=== PATIENT | male | born 1990 | race Caucasian/White ===

== ENCOUNTER 2020-08-06 13:55 | Outpatient (REF) | payer MEDICARE, MEDICAID, SELFPAY | END 2020-08-06 13:56 | disposition home or self-care (01) | LOC: HO.LAB 13:55 | PROVIDERS: Visit Provider Internal Medicine | DX: Z20.828 Contact with and (suspected) exposure to other viral communicable diseases (principal) | CPT/HCPCS: 87635 ==

== ENCOUNTER → 2022-08-09 09:50 | Outpatient (BNVA) | payer MEDICARE, MEDICAID, SELFPAY | PROVIDERS: PCP Physician Assistant Medical; Visit Provider Dietitian, Registered | DX: E66.01 Morbid (severe) obesity due to excess calories (principal); G47.33 Obstructive sleep apnea (adult) (pediatric); Z68.42 Body mass index [BMI] 45.0-49.9, adult | CPT/HCPCS: 97802 ==

== ENCOUNTER → 2022-11-15 13:06 | Outpatient (BNVA) | payer MEDICARE, MEDICAID, SELFPAY | PROVIDERS: PCP Physician Assistant Medical; Visit Provider Dietitian, Registered | DX: G47.33 Obstructive sleep apnea (adult) (pediatric) (principal); E66.01 Morbid (severe) obesity due to excess calories; F50.81 Binge eating disorder; F50.89 Other specified eating disorder; Z68.42 Body mass index [BMI] 45.0-49.9, adult; Z86.39 Personal history of other endocrine, nutritional and metabolic disease | CPT/HCPCS: 97803 ==

== ENCOUNTER → 2023-02-16 10:00 | Outpatient (BNVA) | payer MEDICARE, MEDICAID, SELFPAY | PROVIDERS: PCP Physician Assistant Medical; Visit Provider Dietitian, Registered | DX: E66.9 Obesity, unspecified (principal); G47.33 Obstructive sleep apnea (adult) (pediatric); Z68.42 Body mass index [BMI] 45.0-49.9, adult; Z71.3 Dietary counseling and surveillance | CPT/HCPCS: 97803 ==

== ENCOUNTER 2023-07-18 09:45 | Outpatient (AMB) | payer MEDICARE, MEDICAID, SELFPAY ==
[2023-07-18 10:13] VITALS: BMI 47.0
--- NOTE | 2023-07-18 10:13 | A.OFFVIS_ITS ---
Intake VS Expanded 07/18/23 10:13 Height 5 ft 7 in Weight 299 lb 13.259 oz BMI 47.0 Intake Visit Reasons: Obesity/LVM Allergies shellfish derived Allergy (Mild, Unverified 07/09/20 17:25) HIVES HPI Nutrition Presentation Details PT presents for MNT 6 months for obesity Pt reports has difficulties sleeping due to PTSD and increases of food intake. Pt admits to not reducing portions or reading food labels. Admits to not making consistent diet modifications. Most Recent Diabetes Results: No Data to Display Assessment & Plan Assessment & Plan (1) GISELE (obstructive sleep apnea): Code(s): G47.33 - Obstructive sleep apnea (adult) (pediatric) (2) Morbid obesity with BMI of 45.0-49.9, adult: Code(s): E66.01 - Morbid (severe) obesity due to excess calories; Z68.42 - Body mass index [BMI] 45.0-49.9, adult Plan: Educate Pt on 1999- 2099 jose meal plan ? Pt's set goal (Date: 08/09/22 ): drink water with meals instead of juice drinks/sodas at follow up (Date: 11/15/22 ): Not met, goal modified to dilute juices with water working on reducing sugar intake at f/u (02/16/23) not met, 06/2023 NOT MET. Had long discussion regarding interest in diet modification and continue nutrition follow up. Pt was advised to stop nutrition visits until he is ready to work on diet modifications. Pt agreed to work on diet modifications. Used wt : 134 kg Est kcal as per MSJ: 2685-500 = 2185 (40% carb, 30% fat/prot) Est fluid needs: 3352 ml/d (25 ml/kg bw) Rec fiber: increase to 8-10 g per day and gradually increase to 35 g as tolerated Rec Na: < 2000 mg /d Educate patient on: (R= Reviewed, V = verbalizes understanding N/R= Needs review N/A= not applicable) * Food sources of carbohydrates and serving adequate serving sizes : R * Difference between complex carbohydrates and simple carbohydrates, role of fiber: R * Differences between fats (MUFA/PUFA/saturated fats, trans fats) and food sources of various fats: R * Food sources of sodium and salt and healthy modifications for heart health and kidney health: N/R * Vitamins and minerals: N/R * How to interpret food labels: N/R * Healthy Plate method concept: R * Physical activity: benefits and precaution: R V Patient Instructions: Pt agreed to switch to smaller plates and cups to reduce on portion sizes Have a fruit in place of pastries, choose lower calorie foods, opt for diet beverages, low sugar cereals, jello and the like. See list of options provided (contemplating physical activity) Goal weight loss 6 lbs less by next follow up in 3 months Coding Level of Care Code Nutr Indiv Subseq (85896) Diagnoses GISELE (obstructive sleep apnea) G47.33 Morbid obesity with BMI of 45.0-49.9, adult E66.01; Z68.42 Time Spent (min) 30
== END 2023-07-18 11:11 | disposition home or self-care (01) ==
PROVIDERS: PCP Physician Assistant Medical; Visit Provider Dietitian, Registered
DX: G47.33 Obstructive sleep apnea (adult) (pediatric) (principal); E66.01 Morbid (severe) obesity due to excess calories; Z68.42 Body mass index [BMI] 45.0-49.9, adult

== ENCOUNTER → 2023-07-18 09:45 | Outpatient (BNVA) | payer MEDICARE, MEDICAID, SELFPAY | PROVIDERS: Visit Provider Dietitian, Registered | DX: E66.9 Obesity, unspecified (principal); F43.10 Post-traumatic stress disorder, unspecified; G47.33 Obstructive sleep apnea (adult) (pediatric); Z68.42 Body mass index [BMI] 45.0-49.9, adult; Z71.3 Dietary counseling and surveillance | CPT/HCPCS: 97803 ==

== ENCOUNTER 2023-10-18 10:35 | Outpatient (AMB) | payer MEDICARE, MEDICAID, SELFPAY ==
[2023-10-18 11:21] VITALS: BMI 46.0
--- NOTE | 2023-10-18 11:21 | A.OFFVIS_ITS ---
Intake VS Expanded 10/18/23 11:21 Height 5 ft 7 in Weight 293 lb 14.019 oz BMI 46.0 Intake Visit Reasons: Obesity/LVM Allergies shellfish derived Allergy (Mild, Unverified 07/09/20 17:25) HIVES HPI Nutrition Presentation Details Pt presents for MNT for obesity Pt;s wt goal: 260 lbs Pt reports working on reducing on sugars from beverages and having salads with protein foods for lunch 5 days a week Challenges: eating late at night while playing /watching TV Tends to eat fast/overeats and vomits after meals - happens once daily Physical activity: sedentary - has gym membership Most Recent Diabetes Results: No Data to Display Assessment & Plan Assessment & Plan (1) GISELE (obstructive sleep apnea): Code(s): G47.33 - Obstructive sleep apnea (adult) (pediatric) Plan: Follow heathy plate method at dinner 5 times/wk (2) Morbid obesity with BMI of 45.0-49.9, adult: Comment: BMI 46 on 09/2023 Code(s): E66.01 - Morbid (severe) obesity due to excess calories; Z68.42 - Body mass index [BMI] 45.0-49.9, adult Plan: Pt's set goal (Date: 08/09/22 ): drink water with meals instead of juice drinks/sodas at follow up (Date: 11/15/22 ): Not met, goal modified to dilute juices with water working on reducing sugar intake at f/u (02/16/23) not met, 06/2023 NOT MET. Had long discussion regarding interest in diet modification and continue nutrition follow up. Pt was advised to stop nutrition visits until he is ready to work on diet modifications. Pt agreed to work on diet modifications. 09/2023: making diet modifications related to reducing on starches and having salad with protein in one meal in the day Used wt : 134 kg (10/18/23) Est kcal as per MSJ: 2685-500 = 2185 (40% carb, 30% fat/prot) Est fluid needs: 3352 ml/d (25 ml/kg bw) Rec fiber: increase to 8-10 g per day and gradually increase to 35 g as tolerated Rec Na: < 2000 mg /d Educate patient on: (R= Reviewed, V = verbalizes understanding N/R= Needs review N/A= not applicable) * Food sources of carbohydrates and serving adequate serving sizes : R * Difference between complex carbohydrates and simple carbohydrates, role of fiber: R * Differences between fats (MUFA/PUFA/saturated fats, trans fats) and food sources of various fats: R * Food sources of sodium and salt and healthy modifications for heart health and kidney health: N/R * Vitamins and minerals: N/R * How to interpret food labels: N/R * Healthy Plate method concept: R * Physical activity: benefits and precaution: R V Patient Instructions: -Reduce on sugars (from beverages, sugar added to coffee) -Eat slowly , chew foods well prior to swallowing to prevent vomiting after meals - Follow healthy plate method at dinner 5 times/wk weight loss goal by next follow up 5 lbs less Coding Level of Care Code Nutr Indiv Subseq (72371) Diagnoses GISELE (obstructive sleep apnea) G47.33 Morbid obesity with BMI of 45.0-49.9, adult E66.01; Z68.42 Time Spent (min) 30
== END 2023-10-18 12:02 | disposition home or self-care (01) ==
PROVIDERS: PCP Physician Assistant Medical; Visit Provider Dietitian, Registered
DX: G47.33 Obstructive sleep apnea (adult) (pediatric) (principal); E66.01 Morbid (severe) obesity due to excess calories; Z68.42 Body mass index [BMI] 45.0-49.9, adult

== ENCOUNTER → 2023-10-18 10:35 | Outpatient (BNVA) | payer MEDICARE, MEDICAID, SELFPAY | PROVIDERS: PCP Physician Assistant Medical; Visit Provider Dietitian, Registered | DX: G47.33 Obstructive sleep apnea (adult) (pediatric) (principal); E66.01 Morbid (severe) obesity due to excess calories; Z68.42 Body mass index [BMI] 45.0-49.9, adult | CPT/HCPCS: 97803 ==

== ENCOUNTER 2024-01-31 10:07 | Outpatient (AMB) | payer MEDICARE, MEDICAID, SELFPAY ==
[2024-01-31 10:13] VITALS: BMI 46.4
--- NOTE | 2024-01-31 10:13 | A.OFFVIS_ITS ---
Intake VS Expanded 01/31/24 10:13 Height 5 ft 7 in Weight 296 lb 8.348 oz BMI 46.4 Intake Visit Reasons: obesity/UNABLE TO REACH Allergies shellfish derived Allergy (Mild, Unverified 07/09/20 17:25) HIVES HPI Nutrition Presentation Details Pt presents for MNT f/u for obesity Pt reports choosing fruits, and drinking more water Trying healthier food options however not reducing on portions or fat intake. Eats fast, not savoring food Most Recent Diabetes Results: No Data to Display Assessment & Plan Assessment & Plan (1) GISELE (obstructive sleep apnea): Code(s): G47.33 - Obstructive sleep apnea (adult) (pediatric) Plan: Follow heathy plate method at dinner 5 times/wk (2) Morbid obesity with BMI of 45.0-49.9, adult: Comment: BMI 46 on 09/2023- Code(s): E66.01 - Morbid (severe) obesity due to excess calories; Z68.42 - Body mass index [BMI] 45.0-49.9, adult Plan: Pt's set goal (Date: 08/09/22 ): drink water with meals instead of juice drinks/sodas at follow up (Date: 11/15/22 ): Not met, goal modified to dilute juices with water working on reducing sugar intake at f/u (02/16/23) not met, 06/2023 NOT MET. Had long discussion regarding interest in diet modification and continue nutrition follow up. Pt was advised to stop nutrition visits until he is ready to work on diet modifications. Pt agreed to work on diet modifications. 09/2023: making diet modifications related to reducing on starches and having salad with protein in one meal in the day Used wt : 134 kg (10/18/23), 134 kg (01/2024) Est kcal as per MSJ: 5865-500 = 2185 (40% carb, 30% fat/prot) Est fluid needs: 3352 ml/d (25 ml/kg bw) Rec fiber: increase to 8-10 g per day and gradually increase to 35 g as tolerated Rec Na: < 2000 mg /d Educate patient on: (R= Reviewed, V = verbalizes understanding N/R= Needs review N/A= not applicable) * Food sources of carbohydrates and serving adequate serving sizes : R * Difference between complex carbohydrates and simple carbohydrates, role of fiber: R * Differences between fats (MUFA/PUFA/saturated fats, trans fats) and food sources of various fats: R * Food sources of sodium and salt and healthy modifications for heart health and kidney health: R * Vitamins and minerals: N/R * How to interpret food labels: R * Healthy Plate method concept: R * Physical activity: benefits and precaution: R V Patient Instructions: Choose low fat options at fast food rest : turkey sand with veggies at [employer] vs fried foods meals - see list of lower fat options - Coding Level of Care Code Nutr Indiv Subseq (61521) Diagnoses GISELE (obstructive sleep apnea) G47.33 Morbid obesity with BMI of 45.0-49.9, adult E66.01; Z68.42 Time Spent (min) 15
== END 2024-01-31 11:02 | disposition home or self-care (01) ==
PROVIDERS: PCP Physician Assistant Medical; Visit Provider Dietitian, Registered
DX: G47.33 Obstructive sleep apnea (adult) (pediatric) (principal); E66.01 Morbid (severe) obesity due to excess calories; Z68.42 Body mass index [BMI] 45.0-49.9, adult

== ENCOUNTER → 2024-01-31 10:07 | Outpatient (BNVA) | payer MEDICARE, MEDICAID, SELFPAY | PROVIDERS: PCP Physician Assistant Medical; Visit Provider Dietitian, Registered | DX: G47.33 Obstructive sleep apnea (adult) (pediatric) (principal); E66.01 Morbid (severe) obesity due to excess calories; Z68.42 Body mass index [BMI] 45.0-49.9, adult | CPT/HCPCS: 97803 ==

== ENCOUNTER 2024-05-01 10:24 | Outpatient (AMB) | payer MEDICARE, MEDICAID, SELFPAY ==
[2024-05-01 10:34] VITALS: BMI 46.6
--- NOTE | 2024-05-01 10:34 | A.OFFVIS_ITS ---
VS Expanded 05/01/24 10:34 05/01/24 10:44 Height 5 ft 7 in 5 ft 7 in Weight 297 lb 13.512 oz 298 lb BMI 46.6 46.7 Intake Visit Reasons: OBESITY/CONFIRMED Allergies shellfish derived Allergy (Mild, Unverified 07/09/20 17:25) HIVES Nutrition Presentation Details: Pt presents for MNT f/u for obesity Pt reports no consistent diet or exercise modification. Pt verbalizes low calorie food options BS Monitoring Most Recent Diabetes Results: No Data to Display NJV-Iqmcpl[facility]-Mn.Jeor Equation Height: 5 ft 7 in Weight: 298 lb Resting Metabolic Rate: 2241.86 Calculated Activity Level: Sedentary Calories Needed to Maintain Weight: 2690.23 Assessment & Plan Assessment & Plan (1) GISELE (obstructive sleep apnea): Code(s): G47.33 - Obstructive sleep apnea (adult) (pediatric) Category: Medical Plan: Reduce on fats in diet (reducing amount of sour cream, cheese and choose baked foods instead of fried foods) (2) Morbid obesity with BMI of 45.0-49.9, adult: Comment: BMI 46 on 09/2023- , 46.7(05/15) Code(s): E66.01 - Morbid (severe) obesity due to excess calories; Z68.42 - Body mass index [BMI] 45.0-49.9, adult Category: Medical Plan: Used wt : 134 kg (10/18/23), 134 kg (01/2024), 135 kg (04/2024) Est kcal as per MSJ: 2685-500 = 2185 (40% carb, 30% fat/prot) Est fluid needs: 3352 ml/d (25 ml/kg bw) Rec fiber: increase to 8-10 g per day and gradually increase to 35 g as tolerated Rec Na: < 2000 mg /d Educate patient on: (R= Reviewed, V = verbalizes understanding N/R= Needs review N/A= not applicable) * Food sources of carbohydrates and serving adequate serving sizes : R * Difference between complex carbohydrates and simple carbohydrates, role of fi harley: R * Differences between fats (MUFA/PUFA/saturated fats, trans fats) and food sources of various fats: R * Food sources of sodium and salt and healthy modifications for heart health and kidney health: R * Vitamins and minerals: N/R * How to interpret food labels: R * Healthy Plate method concept: R * Physical activity: benefits and precaution: R V Patient Instructions: keep track of your total calories utilizing phone ammon, Reduce your calories to 3000 a day Coding Level of Care Code Nutr Indiv Subseq (47039) Diagnoses GISELE (obstructive sleep apnea) G47.33 Morbid obesity with BMI of 45.0-49.9, adult E66.01; Z68.42 Time Spent (min) 20
[2024-05-08 14:49] VITALS: BMI 46.7
== END 2024-05-01 11:07 | disposition home or self-care (01) ==
PROVIDERS: PCP Physician Assistant Medical; Visit Provider Dietitian, Registered
DX: G47.33 Obstructive sleep apnea (adult) (pediatric) (principal); E66.01 Morbid (severe) obesity due to excess calories; Z68.42 Body mass index [BMI] 45.0-49.9, adult

== ENCOUNTER → 2024-05-01 10:24 | Outpatient (BNVA) | payer MEDICARE, MEDICAID, SELFPAY | PROVIDERS: PCP Physician Assistant Medical; Visit Provider Dietitian, Registered | DX: E66.01 Morbid (severe) obesity due to excess calories (principal); Z68.42 Body mass index [BMI] 45.0-49.9, adult; G47.33 Obstructive sleep apnea (adult) (pediatric); Z71.3 Dietary counseling and surveillance | CPT/HCPCS: 97803 ==

== ENCOUNTER 2024-10-31 10:10 | Outpatient (AMB) | payer MEDICARE, MEDICAID, SELFPAY ==
[2024-10-31 10:14] VITALS: BMI 47.1
--- NOTE | 2024-10-31 10:14 | A.OFFVIS_ITS ---
VS Expanded 10/31/24 10:14 Height 5 ft 7 in Weight 300 lb 14.896 oz BMI 47.1 Intake Visit Reasons: morbid obesity/Confirmed Allergies shellfish derived Allergy (Mild, Unverified 07/09/20 17:25) CLEMENTE Nutrition Presentation Details: Pt presents for MNT f/u for obesity Pt reports having sodas/juices/ high sugar beverages reports having larger meals in the evening : 2 boxes of pasta (mac and cheese) no vegetables BS Monitoring Most Recent Diabetes Results: No Data to Display Assessment & Plan Assessment & Plan (1) Morbid obesity with BMI of 45.0-49.9, adult: Comment: BMI 46 on 09/2023- , 46.7(05/15) Code(s): E66.01 - Morbid (severe) obesity due to excess calories; Z68.42 - Body mass index [BMI] 45.0-49.9, adult Category: Medical Plan: Used wt : 134 kg (10/18/23), 134 kg (01/2024), 135 kg (04/2024), 135 kg (11/16) Est kcal as per MSJ: 2685-500 = 2185 (40% carb, 30% fat/prot) Est fluid needs: 3352 ml/d (25 ml/kg bw) Rec fiber: increase to 8-10 g per day and gradually increase to 35 g as tolerated Rec Na: < 2000 mg /d Educate patient on: (R= Reviewed, V = verbalizes understanding N/R= Needs review N/A= not applicable) * Food sources of carbohydrates and serving adequate serving sizes : R * Difference between complex carbohydrates and simple carbohydrates, role of fiber: R * Differences between fats (MUFA/PUFA/saturated fats, trans fats) and food sources of various fats: R * Food sources of sodium and salt and healthy modifications for heart health and kidney health: R * Vitamins and minerals: r- pt on iron supplements 45 mg/d (iron sulfate/slow Fe) * How to interpret food labels: R * Healthy Plate method concept: R * Physical activity: benefits and precaution: R V Patient Instructions: Switch to low sugar beverages, crystal light Have 1 box of mc and cheese in place of 2 , add 4 oz of chicken grilled or tuna and lots of vegetables like broccoli, carrots, onions, mixed vegetables see meal ideas as reference Coding Level of Care Code Nutr Indiv Subseq (51404) Diagnoses Morbid obesity with BMI of 45.0-49.9, adult E66.01; Z68.42 Time Spent (min) 30
== END 2024-10-31 10:49 | disposition home or self-care (01) ==
PROVIDERS: PCP Physician Assistant Medical; Visit Provider Dietitian, Registered
DX: E66.01 Morbid (severe) obesity due to excess calories (principal); Z68.42 Body mass index [BMI] 45.0-49.9, adult

== ENCOUNTER → 2024-10-31 10:10 | Outpatient (BNVA) | payer MEDICARE, MEDICAID, SELFPAY | PROVIDERS: PCP Physician Assistant Medical; Visit Provider Dietitian, Registered | DX: E66.01 Morbid (severe) obesity due to excess calories (principal); Z68.42 Body mass index [BMI] 45.0-49.9, adult | CPT/HCPCS: 97803 ==

== ENCOUNTER 2025-01-09 11:46 | Outpatient (AMB) | payer MEDICARE, MEDICAID, SELFPAY ==
--- NOTE | 2025-01-09 11:26 | A.OFFVIS_ITS ---
VS Expanded 01/09/25 11:34 Height 5 ft 7 in Weight 307 lb 1.663 oz BMI 48.1 Intake Visit Reasons: Obesity Allergies shellfish derived Allergy (Mild, Unverified 07/09/20 17:25) HIVES Nutrition Presentation Details: Pt presents for MNT f/u for obesity Pt reports working on choosing healthier foods options Reports he is working and keeping physically active Food frequency fruits: 0-3/d vegetables: 4/day starches >30 /d cheese > 5 serving/d night eating (fast food meals) water: 24 oz/d Pt declines future nutrition visits BS Monitoring Most Recent Diabetes Results: No Data to Display Assessment & Plan Assessment & Plan (1) Morbid obesity with BMI of 45.0-49.9, adult: Comment: BMI 46 on 09/2023- , 46.7(05/15), 48.1 (01/14) Code(s): E66.01 - Morbid (severe) obesity due to excess calories; Z68.42 - Body mass index [BMI] 45.0-49.9, adult Category: Medical Plan: Review eating slowly, choosing fiber rich foods Used wt : 134 kg (10/18/23), 134 kg (01/2024), 135 kg (04/2024), 135 kg (11/16), 139 kg (01/14) Est kcal as per MSJ: 2685-500 = 2185 (40% carb, 30% fat/prot) Est fluid needs: 3352 ml/d (25 ml/kg bw) Rec fiber: increase to 8-10 g per day and gradually increase to 35 g as tolerated Rec Na: < 2000 mg /d Educate patient on: (R= Reviewed, V = verbalizes understanding N/R= Needs review N/A= not applicable) * Food sources of carbohydrates and serving adequate serving sizes : R * Difference between complex carbohydrates and simple carbohydrates, role of fiber: R * Differences between fats (MUFA/PUFA/saturated fats, trans fats) and food sources of various fats: R * Food sources of sodium and salt and healthy modifications for heart health and kidney health: R * Vitamins and minerals: r- pt on iron supplements 45 mg/d (iron sulfate/slow Fe) * How to interpret food labels: R * Healthy Plate method concept: R * Physical activity: benefits and precaution: R V Patient Instructions: Include 1-2 fruits daily , reducing on pastries Choose Baked food items in place of fried foods Work on chewing your food , eating slow Coding Level of Care Code Nutr Indiv Subseq (40725) Diagnoses Morbid obesity with BMI of 45.0-49.9, adult E66.01; Z68.42 Time Spent (min) 30
[2025-01-09 11:34] VITALS: BMI 48.1
--- OUTSIDE RECORDS SUMMARY | 2025-01-09 14:10 | XMS_ITS | Encounter Summary ---
Author Organization [facility] Address [address] [place] [address] Care Team Providers Care Hand Launderer Name Role Phone Osmani Lake Primary Care Provider [phone] Reason for Visit * Reason Comments Medication Review Encounter Details Date Type Department Care Team (Late st Contact Info) Description 01/08/2025 10:45 AM EDT Office Visit Adult Medicine [facility] [address], [place] [phone] Osmani Lake PA [address] [place] [address] Primary hypertension (Primary Dx); Mixed hyperlipidemia; Fatty liver; Iron deficiency anemia, unspecified iron deficiency anemia type; Gastroesophageal reflux disease without esophagitis; Bipolar 2 disorder ([facility]/HCC); Obstructive sleep apnea; Morbid obesity with BMI of 45.0-49.9, adult ([facility]) Social History Tobacco Use Types Packs/Day Years Used Date Smoking Tobacco: Never Smokeless Tobacco: Never Alcohol Use Standard Drinks/Week Comments Not Currently 0 (1 standard drink = 0.6 oz pur e alcohol) Sex and Gender Information Value Date Recorded Sex Assigned at Not on file Legal Sex Male 10:10 PM EST Gender Identity Not on file Sexual Orientation Not on file documented as of this encounter Last Filed Vital Signs Vital Sign Reading Time Taken Comments Blood Pressure 120/81 01/08/2025 11:31 AM EDT Pulse 79 01/08/2025 11:31 AM EDT Temperature 36.4 ??C (97.5 ??F) 01/08/2025 11:31 AM E DT Respiratory Rate 14 01/08/2025 11:31 AM EDT Oxygen Saturation - - Inhaled Oxygen Concentration - - Weight 138 kg (304 lb 6.4 oz) 01/08/2025 11:31 A M EDT Height 175.3 cm (5' 9 ) 01/08/2025 11:31 AM EDT Body Mass Index 44.95 01/08/2025 11:31 AM EDT documented in this encounter Ordered Prescriptions Prescription Sig Dispense Quantity Refills Last Filled Start Date End Date hydrocortisone (ANUSOL-HC) 2.5 % rectal cream Insert into the rectum 4 (four) times a day if needed for hemorrhoids. Apply to affected areas 30 g 11 01/08/2025 traZODone (DESYREL) 50 mg tablet Take 1 tablet (50 mg total) by mouth at bedtime. 90 tablet 01/08/2025 paliperidone (INVEGA) 9 mg 24 hr tablet Take 1 tablet (9 mg total) by mouth 1 (one) time each day in the morning. 90 tablet 01/08/2025 loratadine (CLARITIN) 10 mg tablet Take 1 tablet (10 mg total) by mouth 1 (one) time each day in the morning. 90 tablet 01/08/2025 hydrOXYzine pamoate (VISTARIL) 50 mg capsule Take 1 capsule (50 mg total) by mouth 3 (three) times a day if needed for itching. 90 capsule 01/08/2025 ferrous sulfate 142 mg ER tablet Take 1 tablet by mouth 1 (one) time each day. 90 tablet 01/08/2025 famotidine (PEPCID) 20 mg tablet Take 1 tablet (20 mg total) by mouth 2 (two) times a day. 90 tablet 01/08/2025 citalopram (CeleXA) 20 mg tablet Take 1 tablet (20 mg total) by mouth 1 (one) time each day. 90 tablet 01/08/2025 benztropine (COGENTIN) 0.5 mg tablet Take 1 tablet (0.5 mg total) by mouth 1 (one) time each day. 90 tablet 01/08/2025 busPIRone (BUSPAR) 10 mg tablet Take 1.5 tablets (15 mg total) by mouth 2 (two) times a day. 90 tablet 01/08/2025 atorvastatin (LIPITOR) 40 mg tablet Take 1 tablet (40 mg total) by mouth 1 (one) time each day. 90 tablet 3 01/08/2025 documented in this encounter Progress Notes * Carolee Neri MA - 01/08/2025 10:45 AM EDT Depression Screening Will the patient answer the depression risk questions?: Yes Over the last 2 weeks, how often have you been bothered by little interest or pleasure in doing things?: Not at all Over the last 2 weeks, how often have you been bothered by feeling down, depressed, or hopeless?: Not at all Depression Risk: 0 * LIBERTY Valente - 01/08/2025 10:45 AM EDT CHIEF COMPLAINT: Medication Review IDENTIFIER: Zaheer Vega is a 34 y.o. old male. HPI: This pleasant patient presents today for follow-up. He does report some bumps around the rectal area that he noticed. They are not terribly painful and he denies any bleeding. He is due for some routine blood work health maintenance seems to be up-to-date otherwise ROS: GENERAL: Negative for malaise, significant weight loss and fever RESPIRATORY: No cough, wheezing or shortness of breath CARDIOVASCULAR: Negative for chest pain, leg swelling and palpitations ENDOCRINE: Negative for cold or heat intolerance, polyuria, polydipsia and goiter NEURO: No persistent headache, fainting, seizures, strokes, TIAs, weakness, numbness or tingling PAST MEDICAL HISTORY: Patient Active Problem List Diagnosis Date Noted Morbid obesity with BMI of 45.0-49.9, adult ([facility]) 08/08/2024 Iron deficiency anemia 01/01/2024 Obstructive sleep apnea 09/21/2021 Arachnoid cyst 08/03/2021 Low testosterone in male 07/26/2021 COVID-19 08/17/2020 Hypertension 01/03/2020 GERD (gastroesophageal reflux disease) 01/31/2018 Seasonal allergies 01/31/2018 Central sleep apnea 02/13/2017 Hyperlipidemia 11/12/2015 Fatty liver 12/23/2013 Bipolar 2 disorder ([facility]/HCC) 04/27/2011 ADD (attention deficit disorder) 04/27/2011 Past Surgical History: Procedure Laterality Date OTHER SURGICAL HISTORY PROCEDURE: DENIES PREVIOUS SURGERY SOCIAL HISTORY: Social History Tobacco Use Smoking status: Never Smokeless tobacco: Never Substance Use Topics Alcohol use: Not Currently FAMILY HISTORY: Family History Problem Relation Name Age of Onset Hypertension Mother breast cancer, bone cancer, lung cancer (smoker) hyperlipidemia, doesn't talk to mom No Known Problems Father No Known Problems Sister x 3 healthy sisters No Known Problems Brother x 6 healthy brothers Emphysema Maternal Grandmother copd Heart attack Maternal Grandfather No Known Problems Paternal Grandmother No Known Problems Paternal Grandfather Brain cancer Uncle maternal side Family Status Relation Name Status Mother Alive Father Alive Sister Alive Brother Alive MGM MGF PGM Alive PGF Uncle No partnership data on file MEDICATIONS DISCONTINUED/REORDERED: Medications Discontinued During This Encounter Medication Reason atorvastatin (LIPITOR) 40 mg tablet Reorder benztropine (COGENTIN) 0.5 mg tablet Reorder busPIRone (BUSPAR) 10 mg tablet Reorder citalopram (CeleXA) 20 mg tablet Reorder famotidine (PEPCID) 20 mg tablet Reorder hydrOXYzine pamoate (VISTARIL) 50 mg capsule Reorder loratadine (CLARITIN) 10 mg tablet Reorder paliperidone (INVEGA) 9 mg 24 hr tablet Reorder traZODone (DESYREL) 50 mg tablet Reorder ferrous sulfate 142 mg ER tablet Reorder ACTIVE MEDICATIONS: Outpatient Medications Marked as Taking for the 01/08/25 encounter (Office Visit) with LIBERTY Valente Medication Sig Dispense Refill acetaminophen (TYLENOL) 500 mg tablet Take 2 tablets (1,000 mg total) by mouth every 8 (eight) hours if needed. atorvastatin (LIPITOR) 40 mg tablet Take 1 tablet (40 mg total) by mouth 1 (one) time each day. 90 tablet 3 benztropine (COGENTIN) 0.5 mg tablet Take 1 tablet (0.5 mg total) by mouth 1 (one) time each day. 90 tablet 3 busPIRone (BUSPAR) 10 mg tablet Take 1.5 tablets (15 mg total) by mouth 2 (two) times a day. 90 tablet 3 citalopram (CeleXA) 20 mg tablet Take 1 tablet (20 mg total) by mouth 1 (one) time each day. 90 tablet 3 divalproex (DEPAKOTE) [address] tablet Take 1 tablet (500 mg total) by mouth. famotidine (PEPCID) 20 mg tablet Take 1 tablet (20 mg total) by mouth 2 (two) times a day. 90 tablet 3 ferrous sulfate 142 mg ER tablet Take 1 tablet by mouth 1 (one) time each day. 90 tablet 3 hydrOXYzine pamoate (VISTARIL) 50 mg capsule Take 1 capsule (50 mg total) by mouth 3 (three) times a day if needed for itching. 90 capsule 11 loratadine (CLARITIN) 10 mg tablet Take 1 tablet (10 mg total) by mouth 1 (one) time each day in the morning. 90 tablet 3 paliperidone (INVEGA) 9 mg 24 hr tablet Take 1 tablet (9 mg total) by mouth 1 (one) time each day in the morning. 90 tablet 3 traZODone (DESYREL) 50 mg tablet Take 1 tablet (50 mg total) by mouth at bedtime. 90 tablet 3 [DISCONTINUED] atorvastatin (LIPITOR) 40 mg tablet Take 1 tablet (40 mg total) by mouth 1 (one) time each day. [DISCONTINUED] benztropine (COGENTIN) 0.5 mg tablet Take 1 tablet (0.5 mg total) by mouth. [DISCONTINUED] busPIRone (BUSPAR) 10 mg tablet Take 1.5 tablets (15 mg total) by mouth 2 (two) times a day. [DISCONTINUED] citalopram (CeleXA) 20 mg tablet Take 1 tablet (20 mg total) by mouth. [DISCONTINUED] famotidine (PEPCID) 20 mg tablet Take 1 tablet (20 mg total) by mouth 2 (two) times a day. [DISCONTINUED] ferrous sulfate 142 mg ER tablet Take 1 tablet by mouth 1 (one) time each day. 90 tablet 0 [DISCONTINUED] hydrOXYzine pamoate (VISTARIL) 50 mg capsule [DISCONTINUED] loratadine (CLARITIN) 10 mg tablet Take 1 tablet (10 mg total) by mouth 1 (one) timeeach day in the morning. [DISCONTINUED] paliperidone (INVEGA) 9 mg 24 hr tablet Take 1 tablet (9 mg total) by mouth. [DISCONTINUED] traZODone (DESYREL) 50 mg tablet Take 10 tablets (500 mg total) by mouth at bedtime. ALLERGIES: Allergies Allergen Reactions Pineapple Swelling Pollen Extracts Runny nose Shellfish Derived PHYSICAL EXAM: Visit Vitals BP 120/81 Pulse 79 Temp 36.4 ??C (97.5 ??F) (Temporal) Resp 14 Ht 1.753 m (69 ) Wt 138 kg (304 lb 6.4 oz) BMI 44.95 kg/m?? Smoking Status Never BSA 2.47 m?? General appearance: alert and oriented, in no acute distress Lungs: clear to auscultation bilaterally Heart: regular rate and rhythm, S1, S2 normal, no murmur, click, rub or gallop Rectal: Mild external hemorrhoids no bleeding LABS/IMAGING: Labs IMPRESSION: 1. Primary hypertension 2. Mixed hyperlipidemia 3. Fatty liver 4. Iron deficiency anemia, unspecified iron deficiency anemia type 5. Gastroesophageal reflux disease without esophagitis 6. Bipolar 2 disorder ([facility]) 7. Obstructive sleep apnea 8. Morbid obesity with BMI of 45.0-49.9, adult ([facility]) PLAN: 1. It looks like he has some small external hemorrhoids I did prescribe some Anusol cream to use discussed fruits vegetables whole grains. 2. Blood pressure under good control continue present regimen. 3. Hyperlipidemia, continue statin. 4. History of bipolar disorder, stable continue present regimen. 5. Obesity discussed diet exercise weight loss. 6. Iron deficiency will update blood work. 7. GISELE, declines CPAP I have applied the code G2211 to this patient???s visit as the primary care provider dealing with (list the condition that is/are complex) leading to the extensive work up, and management associated with the medical care of this patient. This patient???s serious conditions and complex medical conditions also required several consultants needing management and coordination through my office. I have reviewed all information as it pertains to the management of this patient for final approval. I have applied the code G2211 to this patient???s visit as the primary care provider dealing with (list the condition that is/are complex) leading to the extensive work up, and management associated with the medical care of this patient. This patient???s serious conditions and complex medical conditions also required several consultants needing management and coordination through my office. I have reviewed all information as it pertains to the management of this patient for final approval. Advised the patient to call me if any problems. Patient understands the plan. Patient is in agreement with the plan. documented in this encounter Plan of Treatment Upcoming Encounters Date Type Department Care Team (Late st Contact Info) Description 04/03/2025 11:10 AM EDT Office Visit Gastroenterology - [place] [address] [place] [phone] Lorraine Jewell PA [address] [place] [address] 07/18/2025 10:30 AM EDT Office Visit Adult Medicine [facility] [address] [place] [phone] Osmani Lake PA [address] [place] [address] documented as of this encounter Results * Thyroid stimulating hormone with reflex to free t4 and free t3 (01/08/2025 11:58 AM EDT) [facility] TSH 2.56 0.40 - 4.00 mcIU/mL LAB CHEMISTRY METHOD 01/08/2025 3:19 PM EDT [facility] Blood Venous blood specimen / Unknown Venipuncture / Unknown 01/08/2025 11:58 AM EDT 01/08/2025 11:58 AM EDT us Osmani KOENIG LAB BLOOD ORDERABLES Yusra l Result [facility]) [facility] [address] [place] [address], [place] [phone] * Iron and TIBC (01/08/2025 11:58 AM EDT) [facility] Iron 115 50 - 160 mcg/dL LAB CHEMISTRY METHOD 01/08/2025 3:11 PM EDT [facility] TIBC 276 250 - 450 mcg/dL LAB CHEMISTRY METHOD 01/08/2025 3:11 PM EDT [facility] Iron Saturation 42 20 - 50 % LAB CHEMISTRY METHOD 01/08/2025 3:11 PM EDT [facility] Blood Venous blood specimen / Unknown Venipuncture / Unknown 01/08/2025 11:58 AM EDT 01/08/2025 11:58 AM EDT Osmani KOENIG LAB BLOOD ORDERABLES Yusra l Result Performing Organization Address City/[facility]/ZIP Co de Phone Number [facility] [address] [place] [address], [place] [phone] * Hepatitis C antibody (01/08/2025 11:58 AM EDT) [facility] Hepatitis C Antibody Negative Negative LAB CHEMISTRY METHOD 01/08/2025 3:58 PM EDT [facility] Blood Venous blood specimen / Unknown Venipuncture / Unknown 01/08/2025 11:58 AM EDT 01/08/2025 11:58 AM EDT Osmani KOENIG LAB BLOOD ORDERABLES Yusra l Result [facility] [address] [place] [address], [place] [phone] * Comprehensive metabolic panel (01/08/2025 11:58 AM EDT) [facility] Sodium 137 133 - 145 mmol/L LAB CHEMISTRY METHOD 01/08/2025 3:22 PM EDT [facility] Potassium 4.5 3.5 - 5.5 mmol/L LAB CHEMISTRY METHOD 01/08/2025 3:22 PM EDT [facility] Chloride 104 96 - 110 mmol/L LAB CHEMISTRY METHOD 01/08/2025 3:22 PM [facility] CO2 29 21 - 32 mmol/L LAB CHEMISTRY METHOD 01/08/2025 3:22 PM [facility] Anion Gap 4 3 - 11 LAB CHEMISTRY METHOD 01/08/2025 3:22 PM [facility] Glucose 91 70 - 100 mg/dL LAB CHEMISTRY METHOD 01/08/2025 3:22 PM [facility] BUN 10 5 - 25 mg/dL LAB CHEMISTRY METHOD 01/08/2025 3:22 PM [facility] Creatinine 0.84 0.70 - 1.30 mg/dL LAB CHEMISTRY METHOD 01/08/2025 3:22 PM [facility] eGFR 116 >=60 mL/min/1. 73m2 LAB CHEMISTRY METHOD 01/08/2025 3:22 PM [facility] Comment:Calculation based on the??Chronic Kidney Disease Epidemiology Collaboration (CKD-EPI) equation refit??without adjustment for race. BUN/Creatinine Ratio 11.9 LAB CHEMISTRY METHOD 01/08/2025 3:22 PM [facility] Calcium 9.6 8.5 - 10.5 mg/dL LAB CHEMISTRY METHOD 01/08/2025 3:22 PM [facility] AST (SGOT) 31 10 - 42 unit/L LAB CHEMISTRY METHOD 01/08/2025 3:22 PM [facility] ALT (SGPT) 34 10 - 60 unit/L LAB CHEMISTRY METHOD 01/08/2025 3:22 PM [facility] Alkaline Phosphatase 69 42 - 121 unit/L LAB CHEMISTRY METHOD 01/08/2025 3:22 PM [facility] Total Protein 7.0 6.0 - 8.0 g/dL LAB CHEMISTRY METHOD 01/08/2025 3:22 PM [facility] Albumin 3.7 3.2 - 5.0 g/dL LAB CHEMISTRY METHOD 01/08/2025 3:22 PM EDT [facility] Total Bilirubin 0.8 0.0 - 1.4 mg/dL LAB CHEMISTRY METHOD 01/08/2025 3:22 PM T [facility] Blood Venous blood specimen / Unknown Venipuncture / Unknown 01/08/2025 11:58 AM EDT 01/08/2025 11:58 AM EDT us Osmani KOENIG LAB BLOOD ORDERABLES Yusra roper Result [facility] [address] [place] [address], [place] [phone] * Lipid panel with reflex to direct LDL (01/08/2025 11:58 AM EDT) Cholesterol 156 0 - 200 mg/dL LAB CHEMISTRY METHOD 01/08/2025 3:22 PM [facility] Triglycerides 138 0 - 150 mg/dL LAB CHEMISTRY METHOD 01/08/2025 3:22 PM T [facility] HDL 45 >=40 mg/dL LAB CHEMISTRY METHOD 01/08/2025 3:22 PM [facility] LDL Calculated 83 0 - 100 mg/dL LAB CHEMISTRY METHOD 01/08/2025 3:22 PM [facility] VLDL Cholesterol Lanre 27.6 mg/dL LAB CHEMISTRY METHOD 01/08/2025 3:22 PM T [facility] Non HDL Chol. (LDL+VLDL) 111 <145 mg/dL LAB CHEMISTRY METHOD 01/08/2025 3:22 PM [facility] Chol/HDL Ratio 3.5 0.0 - 4.4 LAB CHEMISTRY METHOD 01/08/2025 3:22 PM [facility] Blood Venous blood specimen / Unknown Venipuncture / Unknown 01/08/2025 11:58 AM EDT 01/08/2025 11:58 AM EDT us Osmani KOENIG LAB BLOOD ORDERABLES Yusra roper Result [facility] [address] [place] [address], documented in this encounter Visit Diagnoses Diagnosis Primary hypertension- Primary Unspecified essential hypertension Mixed hyperlipidemia Fatty liver Other chronic nonalcoholic liver disease Iron deficiency anemia, unspecified iron deficiency anemia type Gastroesophageal reflux disease without esophagitis Esophageal reflux Bipolar 2 disorder (CMS/HCC) Other bipolar disorders Obstructive sleep apnea Obstructive sleep apnea (adult) (pediatric) Morbid obesity with BMI of 45.0-49.9, adult (CMS/HCC) documented in this encounter Discontinued Medications Medication Sig Discontinue Reason Start Date End Da te atorvastatin (LIPITOR) 40 mg tablet Take 1 tablet (40 mg total) by mouth 1 (one) time each day. Reorder 01/01/2024 01/08/2025 benztropine (COGENTIN) 0.5 mg tablet Take 1 tablet (0.5 mg total) by mouth. Reorder 01/08/2025 busPIRone (BUSPAR) 10 mg tablet Take 1.5 tablets (15 mg total) by mouth 2 (two) times a day. Reorder 07/20/2020 01/08/2025 citalopram (CeleXA) 20 mg tablet Take 1 tablet (20 mg total) by mouth. Reorder 01/08/2025 famotidine (PEPCID) 20 mg tablet Take 1 tablet (20 mg total) by mouth 2 (two) times a day. Reorder 01/01/2024 01/08/2025 hydrOXYzine pamoate (VISTARIL) 50 mg capsule Reorder 05/30/2023 loratadine (CLARITIN) 10 mg tablet Take 1 tablet (10 mg total) by mouth 1 (one) time each day in the morning. Reorder 01/01/2024 01/08/2025 paliperidone (INVEGA) 9 mg 24 hr tablet Take 1 tablet (9 mg total) by mouth. Reorder 01/08/2025 traZODone (DESYREL) 50 mg tablet Take 10 tablets (500 mg total) by mouth at bedtime. Reorder 01/08/2025 ferrous sulfate 142 mg ER tablet Take 1 tablet by mouth 1 (one) time each day. Reorder 12/09/2024 01/08/2025 documented as of this encounter Additional Health Concerns Assessment Noted Time PHQ-9 Depression Total Score: 0 01/09/20 25 11:32 AM EDT documented as of this encounter Care Teams Hand Launderer Relationship Specialty Start Date End Date Osmani Lake PA [address] [place] [address] PCP - General Internal Medicine 04/14/20 documented as of this encounter
--- OUTSIDE RECORDS SUMMARY | 2025-01-09 14:10 | XMS_ITS | Clinical Summary ---
Author Organization [address] [facility] Address [address] [place] [address] Phone Care Team Providers Care Coke Drawer Hand Name Role Phone Osmani Lake Primary Care Provider [phone] Allergies Active Allergy Reactions Criticality Noted Date Comments Pineapple Swelling High 09/20/2021 Pollen Extracts 09/04/2014 Runny nose Shellfish Derived 06/14/2022 Medications acetaminophen (TYLENOL) 500 mg tablet Take 2 tablets (1,000 mg total) by mouth every 8 (eight) hours if needed. 4 Active divalproex (DEPAKOTE) [address] tablet Take 1 tablet (500 mg total) by mouth. 4 Active atorvastatin (LIPITOR) 40 mg tablet Take 1 tablet (40 mg total) by mouth 1 (one) time each day. 90 tablet 3 5 Active busPIRone (BUSPAR) 10 mg tablet Take 1.5 tablets (15 mg total) by mouth 2 (two) times a day. 90 tablet 3 5 Active benztropine (COGENTIN) 0.5 mg tablet Take 1 tablet (0.5 mg total) by mouth 1 (one) time each day. 90 tablet 3 5 Active citalopram (CeleXA) 20 mg tablet Take 1 tablet (20 mg total) by mouth 1 (one) time each day. 90 tablet 3 5 Active famotidine (PEPCID) 20 mg tablet Take 1 tablet (20 mg total) by mouth 2 (two) times a day. 90 tablet 3 5 Active ferrous sulfate 142 mg ER tablet Take 1 tablet by mouth 1 (one) time each day. 90 tablet 3 5 Active hydrOXYzine pamoate (VISTARIL) 50 mg capsule Take 1 capsule (50 mg total) by mouth 3 (three) times a day if needed for itching. 90 capsule 5 Active loratadine (CLARITIN) 10 mg tablet Take 1 tablet (10 mg total) by mouth 1 (one) time each day in the morning. 90 tablet 3 5 Active paliperidone (INVEGA) 9 mg 24 hr tablet Take 1 tablet (9 mg total) by mouth 1 (one) time each day in the morning. 90 tablet 3 5 Active traZODone (DESYREL) 50 mg tablet Take 1 tablet (50 mg total) by mouth at bedtime. 90 tablet 3 5 Active hydrocortisone (ANUSOL-HC) 2.5 % rectal cream Insert into the rectum 4 (four) times a day if needed for hemorrhoids. Apply to affected areas 30 g 5 Active atorvastatin (LIPITOR) 40 mg tablet Take 1 tablet (40 mg total) by mouth 1 (one) time each day. 4 01/09/20 25 Discontinue d(Reorder) benztropine (COGENTIN) 0.5 mg tablet Take 1 tablet (0.5 mg total) by mouth. 01/09/20 25 Discontinue d(Reorder) busPIRone (BUSPAR) 10 mg tablet Take 1.5 tablets (15 mg total) by mouth 2 (two) times a day. 0 01/09/20 25 Discontinue d(Reorder) citalopram (CeleXA) 20 mg tablet Take 1 tablet (20 mg total) by mouth. 01/09/20 25 Discontinue d(Reorder) famotidine (PEPCID) 20 mg tablet Take 1 tablet (20 mg total) by mouth 2 (two) times a day. 4 01/09/20 25 Discontinue d(Reorder) hydrOXYzine pamoate (VISTARIL) 50 mg capsule 3 01/09/20 25 Discontinue d(Reorder) loratadine (CLARITIN) 10 mg tablet Take 1 tablet (10 mg total) by mouth 1 (one) time each day in the morning. 4 01/09/20 25 Discontinue d(Reorder) paliperidone (INVEGA) 9 mg 24 hr tablet Take 1 tablet (9 mg total) by mouth. 01/09/20 25 Discontinue d(Reorder) pantoprazole (PROTONIX) 20 mg EC tablet Take 1 tablet (20 mg total) by mouth. 4 12/29/19 25 traZODone (DESYREL) 50 mg tablet Take 10 tablets (500 mg total) by mouth at bedtime. 01/09/20 25 Discontinue d(Reorder) ferrous sulfate 142 mg ER tablet Take 1 tablet by mouth 1 (one) time each day. 90 tablet 5 01/09/20 25 Discontinue d(Reorder) Active Problems Problem Noted Date Diagnosed Date Morbid obesity with BMI of 45.0-49.9, adult 07/23 Iron deficiency anemia 01/01/2024 Obstructive sleep apnea 09/21/2021 Overview (08/08/2024): [facility] polysomnogram 05/25/2021; weight 285 pounds; BMI 45. Overall AHI 9. REM AHI 13. Average oxygen saturation 95%; lowest 87%. 1 obstructive apneas; 10 central apneas; 62 obstructive hypopneas. Patient refuses CPAP Arachnoid cyst 08/03/2021 Low testosterone in male 07/26/2021 Overview (08/08/2024): Following with [facility] endocrinology COVID-19 08/17/2020 Hypertension 01/03/2020 GERD (gastroesophageal reflux disease) 8 Seasonal allergies 01/31/2018 Central sleep apnea 02/13/2017 Overview (08/08/2024): UNTREATED (October 2019) Hyperlipidemia 11/12/2015 Fatty liver 12/23/2013 Overview (08/08/2024): On US 12/22/13 Bipolar 2 disorder 04/27/2011 Overview (08/08/2024): Dr cat almonte ADD (attention deficit disorder) 04/27/2011 Encounters Date Type Department Care Team Description 01/08/2025 10:45 AM EDT Office Visit Adult Medicine [address] [address] Osmani Lake PA Primary hypertension (Primary Dx); Mixed hyperlipidemia; Fatty liver; Iron deficiency anemia, unspecified iron deficiency anemia type; Gastroesophageal reflux disease without esophagitis; Bipolar 2 disorder (CMS/[facility]); Obstructive sleep apnea; Morbid obesity with BMI of 45.0-49.9, adult (CMS/[facility]) from Last 3 Months Immunizations Name Administration Dates Next Due Influenza Quadravalent, MDCK , 0.5ml, preservative free (Flucelvax) 6mo and older 11/05/2019 Influenza Quadravalent, MDCK , 0.5ml, with preservative (Flucelvax) 6mo and older 08/04/2017 Influenza trivalent, 0.5mL, preservative free (Fluarix; FluLaval; Fluzone) ages 6mo and older (Afluria) 3 years and older 07/09/2024,09/04/2014 Influenza, Unspecified 07/12/2021 Tdap Tetanus diptheria acell ular pertussis (Boostrix; Adacel) 7yo and older 09/20/2021,04/27/2011 Surgical History Surgery Date Site/Laterality Comments OTHER SURGICAL HISTORY PROCEDURE: DENIES PREVIOUS SURGERY Medical History Medical History Date Comments Hyperlipidemia 11/12/2015 DX:Hyperlipidemi a Bipolar 2 disorder (CMS/HCC) 04/27/2011 DX: Bipolar 2 disorder ([facility]); COMMENT: Dr cat almonte ADD (attention deficit disorder) 04/27/2011 DX:ADD (attention deficit disorder) Fatty liver 12/23/2013 DX:Fatty liver; COMMENT: On US 12/22/13 Morbid obesity (CMS/HCC) 03/09/2017 DX:Morb id obesity (HCC) Family History Medical History Relation Name Comments No Known Problems Brother x 6 health y brothers No Known Problems Father Heart attack Maternal Grandfather Emphysema Maternal Grandmother copd Hypertension Mother breast cancer, bone cancer, lung cancer (smoker) hyperlipidemia, doesn't talk to mom No Known Problems Paternal Grandfather No Known Problems Paternal Grandmother No Known Problems Sister x 3 health y sisters Brain cancer Uncle maternal side Relation Name Status Comments Brother Alive Father Alive Maternal Grandfather Maternal Grandmother Mother Alive Paternal Grandfather Paternal Grandmother Alive Sister Alive Uncle Social History Tobacco Use Types Packs/Day Years Used Date Smoking Tobacco: Never Smokeless Tobacco: Never Alcohol Use Standard Drinks/Week Comments Not Currently 0 (1 standard drink = 0.6 oz pur e alcohol) Sex and Gender Information Value Date Recorded Sex Assigned at Not on file Legal Sex Male 10:10 PM EST Gender Identity Not on file Sexual Orientation Not on file Obstetrics History Last Filed Vital Signs Vital Sign Reading Time Taken Comments Blood Pressure 120/81 01/08/2025 11:31 AM EDT Pulse 79 01/08/2025 11:31 AM EDT Temperature 36.4 ??C (97.5 ??F) 01/08/2025 11:31 AM E DT Respiratory Rate 14 01/08/2025 11:31 AM EDT Oxygen Saturation 97% 10/03/2024 10:42 AM EST Inhaled Oxygen Concentration - - Weight 138 kg (304 lb 6.4 oz) 01/08/2025 11:31 A M EDT Height 175.3 cm (5' 9 ) 01/08/2025 11:31 AM EDT Body Mass Index 44.95 01/08/2025 11:31 AM EDT Plan of Treatment Upcoming Encounters Date Type Department Care Team (Late st Contact Info) Description 04/03/2025 11:10 AM EDT Office Visit Gastroenterology - [place] [address] [place] [id number] Lorraine Jewell PA [address] [place] [address] 07/18/2025 10:30 AM EDT Office Visit Adult Medicine [facility] [address] [place] [address] Osmani Lake PA [address], [place] Health Maintenance Due Date Last Done Comments Hepatitis A Vaccines (1 of 2 - Risk 2-dose series) 2007 Hepatitis B Vaccines (1 of 3 - 19+ 3-dose series) 2007 Pneumococcal Vaccine: Pediatrics (0 to 5 Years) and At-Risk Patients (6 to 64 Years) (1 of 2 - PCV) 2007 HIV Screening 10/01/2022 Medicare Annual Wellness Visit 10/01/2022 Social Influencers of Health Screening 10/01/2022 COVID-19 Vaccine (3 - season) 2024 12/24/2020, 11/26/2020 Depression Screening 01/08/2026 01/08/2025, 12/16/19 Hypertension/CHF/CAD Annual BMP Blood Test 01/08/2026 01/08/2025, 04/03/2024 Cholesterol Screening (Lipid Panel) 01/08/2030 01/08/2025, 04/03/2024 DTaP,Tdap,and Td Vaccines (3 - Td or Tdap) 09/20/2031 09/20/2021, 04/27/2011 Influenza Vaccine Completed 07/09/2024, , 07/12/2021, Additional history exists Hepatitis C Screening Completed 01/08/2025 HIB Vaccines Aged Out No longer eligi ble based on patient's age to complete this topic HPV Vaccines Aged Out No longer eligi ble based on patient's age to complete this topic IPV Vaccines Aged Out No longer eligi ble based on patient's age to complete this topic MMR Vaccines Aged Out No longer eligi ble based on patient's age to complete this topic Meningococcal ACWY Vaccine Aged Out N o longer eligible based on patient's age to complete this topic Meningococcal B Vacine Aged Out No lo nger eligible based on patient's age to complete this topic RSV Immunization Patients Under 20 months Aged Out No longer eligible based on patient's age to complete this topic Varicella Vaccines Aged Out No longer eligible based on patient's age to complete this topic Procedures Procedure Name Priority Date/Time Associated Diagnosis Comments CBC WITH AUTO DIFFERENTIAL Routine 01/08/2025 11:58 AM EDT Primary hypertension Mixed hyperlipidemia Fatty liver Iron deficiency anemia, unspecified iron deficiency anemia type Gastroesophageal reflux disease without esophagitis Bipolar 2 disorder (CMS/HCC) Obstructive sleep apnea Morbid obesity with BMI of 45.0-49.9, adult ([facility]) LIPID PANEL WITH REFLEX TO DIRECT LDL Routine 01/08/2025 11:58 AM EDT Primary hypertension Mixed hyperlipidemia Fatty liver Iron deficiency anemia, unspecified iron deficiency anemia type Gastroesophageal reflux disease without esophagitis Bipolar 2 disorder (CMS/HCC) Obstructive sleep apnea Morbid obesity with BMI of 45.0-49.9, adult ([facility]) COMPREHENSIVE METABOLIC PANEL Routine 01/08/2025 11:58 AM EDT Primary hypertension Mixed hyperlipidemia Fatty liver Iron deficiency anemia, unspecified iron deficiency anemia type Gastroesophageal reflux disease without esophagitis Bipolar 2 disorder (CMS/HCC) Obstructive sleep apnea Morbid obesity with BMI of 45.0-49.9, adult ([facility]) HEPATITIS C ANTIBODY Routine 01/08/2025 11:58 AM EDT Primary hypertension Mixed hyperlipidemia Fatty liver Iron deficiency anemia, unspecified iron deficiency anemia type Gastroesophageal reflux disease without esophagitis Bipolar 2 disorder (CMS/HCC) Obstructive sleep apnea Morbid obesity with BMI of 45.0-49.9, adult ([facility]) CBC AND DIFFERENTIAL Routine 01/08/2025 11:58 AM EDT Primary hypertension Mixed hyperlipidemia Fatty liver Iron deficiency anemia, unspecified iron deficiency anemia type Gastroesophageal reflux disease without esophagitis Bipolar 2 disorder (CMS/HCC) Obstructive sleep apnea Morbid obesity with BMI of 45.0-49.9, adult ([facility]) IRON AND TIBC Routine 01/08/2025 11:58 AM EDT Primary hypertension Mixed hyperlipidemia Fatty liver Iron deficiency anemia, unspecified iron deficiency anemia type Gastroesophageal reflux disease without esophagitis Bipolar 2 disorder (CMS/HCC) Obstructive sleep apnea Morbid obesity with BMI of 45.0-49.9, adult ([facility]) THYROID STIMULATING HORMONE WITH REFLEX TO FREE T4 AND FREE T3 Routine 01/08/2025 11:58 AM EDT Primary hypertension Mixed hyperlipidemia Fatty liver Iron deficiency anemia, unspecified iron deficiency anemia type Gastroesophageal reflux disease without esophagitis Bipolar 2 disorder (CMS/HCC) Obstructive sleep apnea Morbid obesity with BMI of 45.0-49.9, adult (CMS/HCC) from Last 3 Months Results * Hepatitis C antibody (01/08/2025 11:58 AM EDT) [facility] Hepatitis C Antibody Negative Negative LAB CHEMISTRY METHOD 01/08/2025 3:58 PM EDT [facility] Blood Venous blood specimen / Unknown Venipuncture / Unknown 01/08/2025 11:58 AM EDT 01/08/2025 11:58 AM EDT Osmani KOENIG LAB BLOOD ORDERABLES Yusra l Result Performing Organization Address City/[facility]/ZIP Co de Phone Number [facility] [address] [place] [address], [place] [phone] * Thyroid stimulating hormone with reflex to free t4 and free t3 (01/08/2025 11:58 AM EDT) [facility] TSH 2.56 0.40 - 4.00 mcIU/mL LAB CHEMISTRY METHOD 01/08/2025 3:19 PM EDT [facility] Blood Venous blood specimen / Unknown Venipuncture / Unknown 01/08/2025 11:58 AM EDT 01/08/2025 11:58 AM EDT Osmani KOENIG LAB BLOOD ORDERABLES Yusra l Result [facility] [address] [place] [address], [place] [phone] * Lipid panel with reflex to direct LDL (01/08/2025 11:58 AM EDT) [facility] Cholesterol 156 0 - 200 mg/dL LAB CHEMISTRY METHOD 01/08/2025 3:22 PM EDT [facility] Triglycerides 138 0 - 150 mg/dL LAB CHEMISTRY METHOD 01/08/2025 3:22 PM EDT [facility] HDL 45 >=40 mg/dL LAB CHEMISTRY METHOD 01/08/2025 3:22 PM EDT [facility] LDL Calculated 83 0 - 100 mg/dL LAB CHEMISTRY METHOD 01/08/2025 3:22 PM EDT [facility] VLDL Cholesterol Lanre 27.6 mg/dL LAB CHEMISTRY METHOD 01/08/2025 3:22 PM EDT [facility] Non HDL Chol. (LDL+VLDL) 111 <145 mg/dL LAB CHEMISTRY METHOD 01/08/2025 3:22 PM EDT [facility] Chol/HDL Ratio 3.5 0.0 - 4.4 LAB CHEMISTRY METHOD 01/08/2025 3:22 PM EDT [facility] Blood Venous blood specimen / Unknown Venipuncture / Unknown 01/08/2025 11:58 AM EDT 01/08/2025 11:58 AM EDT us Osmani KOENIG LAB BLOOD ORDERABLES Yusra l Result [facility] [address] [place] [address], * (ABNORMAL) CBC auto differential (01/08/2025 11:58 AM EDT) WBC 6.5 4.8 - 10.8 K/mcL LAB HEMETOLOGY METHOD 01/08/2025 2:48 PM EDT [facility] RBC 4.70 4.50 - 5.50 M/mcL LAB HEMETOLOGY METHOD 01/08/2025 2:48 PM EDT [facility] Hemoglobin 14.2 13.5 - 17.5 g/dL LAB HEMETOLOGY METHOD 01/08/2025 2:48 PM EDT [facility] Hematocrit 41.2(L) 42.0 - 54.0 % LAB HEMETOLOGY METHOD 01/08/2025 2:48 PM EDT [facility] MCV 88.6 79.0 - 98.0 FL LAB HEMETOLOGY METHOD 01/08/2025 2:48 PM EDT [facility] MCH 30.5 27.0 - 32.0 pcg LAB HEMETOLOGY METHOD 01/08/2025 2:48 PM EDT [facility] MCHC 34.5 32.0 - 37.0 g/dL LAB HEMETOLOGY METHOD 01/08/2025 2:48 PM EDT [facility] RDW 12.3 11.0 - 15.0 % LAB HEMETOLOGY METHOD 01/08/2025 2:48 PM EDT [facility] Platelets 228 130 - 400 K/mcL LAB HEMETOLOGY METHOD 01/08/2025 2:48 PM EDT [facility] MPV 9.7 7.0 - 11.0 FL LAB HEMETOLOGY METHOD 01/08/2025 2:48 PM EDT [facility] NRBC 0.0 <1.0 % LAB HEMETOLOGY METHOD 01/08/2025 2:48 PM EDT [facility] NRBC Absolute 0.00 <0.10 K/mcL LAB HEMETOLOGY METHOD 01/08/2025 2:48 PM EDT [facility] Neutrophils Relative 40.7 % LAB HEMETOLOGY METHOD 01/08/2025 2:48 PM EDT [facility] Lymphocytes Relative 43.6 % LAB HEMETOLOGY METHOD 01/08/2025 2:48 PM EDT [facility] Monocytes Relative 11.1 % LAB HEMETOLOGY METHOD 01/08/2025 2:48 PM EDT [facility] Eosinophils Relative 1.8 % LAB HEMETOLOGY METHOD 01/08/2025 2:48 PM EDT [facility] Basophils Relative 0.8 % LAB HEMETOLOGY METHOD 01/08/2025 2:48 PM EDT [facility] Immature Granulocytes Relative 2.0 % LAB HEMETOLOGY METHOD 01/08/2025 2:48 PM EDT [facility] Neutrophils Absolute 2.65 1.50 - 7.00 K/mcL LAB HEMETOLOGY METHOD 01/08/2025 2:48 PM EDT [facility] Lymphocytes Absolute 2.84 1.00 - 5.00 K/mcL LAB HEMETOLOGY METHOD 01/08/2025 2:48 PM EDT [facility] Monocytes Absolute 0.72 0.20 - 1.00 K/mcL LAB HEMETOLOGY METHOD 01/08/2025 2:48 PM EDT [facility] Eosinophils Absolute 0.12 0.00 - 0.50 K/mcL LAB HEMETOLOGY METHOD 01/08/2025 2:48 PM EDT [facility] Basophils Absolute 0.05 0.00 - 0.20 K/mcL LAB HEMETOLOGY METHOD 01/08/2025 2:48 PM EDT [facility] Immature Granulocytes Absolute 0.13(H) 0.00 - 0.03 K/mcL LAB HEMETOLOGY METHOD 01/08/2025 2:48 PM EDT [facility] Blood Venous blood specimen / Unknown Venipuncture / Unknown 01/08/2025 11:58 AM EDT 01/08/2025 11:58 AM EDT us Osmani KOENIG LAB BLOOD ORDERABLES Yusra l Result [facility] [address] [place] [address], * Iron and TIBC (01/08/2025 11:58 AM EDT) [facility] Iron 115 50 - 160 mcg/dL LAB CHEMISTRY METHOD [facility]2025 3:[facility] TIBC 276 250 - 450 mcg/dL LAB CHEMISTRY METHOD 01/08/2025 3:11 PM [facility] Iron Saturation 42 20 - 50 % LAB CHEMISTRY METHOD 01/08/2025 3:11 PM [facility] Blood Venous blood specimen / Unknown Venipuncture / Unknown 01/08/2025 11:58 AM EDT 01/08/2025 11:58 AM EDT us Osmani KOENIG LAB BLOOD ORDERABLES Yusra l Result [facility] [address] [place] [address], * Comprehensive metabolic panel (01/08/2025 11:58 AM EDT) Sodium 137 133 - 145 mmol/L LAB CHEMISTRY METHOD 01/08/2025 3:22 PM [facility] Potassium 4.5 3.5 - 5.5 mmol/L LAB CHEMISTRY METHOD 01/08/2025 3:22 PM [facility] Chloride 104 96 - 110 mmol/L LAB CHEMISTRY METHOD 01/08/2025 3:22 PM [facility] CO2 29 21 - 32 mmol/L LAB CHEMISTRY METHOD 01/08/2025 3:22 PM [facility] Anion Gap 4 3 - 11 LAB CHEMISTRY METHOD 01/08/2025 3:22 PM [facility] Glucose 91 70 - 100 mg/dL LAB CHEMISTRY METHOD 01/08/2025 3:22 PM [facility] BUN 10 5 - 25 mg/dL LAB CHEMISTRY METHOD 01/08/2025 3:22 PM [facility] Creatinine 0.84 0.70 - 1.30 mg/dL LAB CHEMISTRY METHOD 01/08/2025 3:22 PM [facility] eGFR 116 >=60 mL/min/1. 73m2 LAB CHEMISTRY METHOD 01/08/2025 3:22 PM EDT [facility] Comment:Calculation based on the??Chronic Kidney Disease Epidemiology Collaboration (CKD-EPI) equation refit??without adjustment for race. BUN/Creatinine Ratio 11.9 LAB CHEMISTRY METHOD 01/08/2025 3:22 PM EDT [facility] Calcium 9.6 8.5 - 10.5 mg/dL LAB CHEMISTRY METHOD 01/08/2025 3:22 PM EDT [facility] AST (SGOT) 31 10 - 42 unit/L LAB CHEMISTRY METHOD 01/08/2025 3:22 PM [facility] ALT (SGPT) 34 10 - 60 unit/L LAB CHEMISTRY METHOD 01/08/2025 3:22 PM EDT [facility] Alkaline Phosphatase 69 42 - 121 unit/L LAB CHEMISTRY METHOD 01/08/2025 3:22 PM EDT [facility] Total Protein 7.0 6.0 - 8.0 g/dL LAB CHEMISTRY METHOD 01/08/2025 3:22 PM EDT [facility] Albumin 3.7 3.2 - 5.0 g/dL LAB CHEMISTRY METHOD 01/08/2025 3:22 PM T [facility] Total Bilirubin 0.8 0.0 - 1.4 mg/dL LAB CHEMISTRY METHOD 01/08/2025 3:22 PM EDT [facility] Blood Venous blood specimen / Unknown Venipuncture / Unknown 01/08/2025 11:58 AM EDT 01/08/2025 11:58 AM EDT us Osmani KOENIG LAB BLOOD ORDERABLES Yusra roper Result [facility] [address] [place] [address], from Last 3 Months Insurance MEDICAID - [place] MEDICARE Care Teams Coke Drawer Hand Relationship Specialty Start Date End Date Osmani Lake PA [address] [place] [address] PCP - General Internal Medicine 04/14/20
== END 2025-01-09 11:54 | disposition home or self-care (01) ==
LOC: HO.ENCR 11:46
PROVIDERS: PCP Physician Assistant Medical; Visit Provider Dietitian, Registered
DX: E66.01 Morbid (severe) obesity due to excess calories (principal); Z68.42 Body mass index [BMI] 45.0-49.9, adult

== ENCOUNTER → 2025-01-09 11:46 | Outpatient (BNVA) | payer MEDICARE, MEDICAID, SELFPAY | PROVIDERS: PCP Physician Assistant Medical; Visit Provider Dietitian, Registered | DX: E66.01 Morbid (severe) obesity due to excess calories (principal); Z71.3 Dietary counseling and surveillance; Z68.42 Body mass index [BMI] 45.0-49.9, adult | CPT/HCPCS: 97803 ==